=== PATIENT | male | born 2000 ===

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

== ENCOUNTER 2019-06-27 20:24 | Emergency (ER) | payer BC ==
[~2019-06-27] VITALS: Ht 175.3 cm; Wt 81.7 kg
== END 2019-06-27 23:11 | disposition home or self-care (01) ==
LOC: ER 20:24
DX: S01.112A Laceration without foreign body of left eyelid and periocular area, initial encounter (principal); Z88.0 Allergy status to penicillin; Z88.8 Allergy status to other drugs, medicaments and biological substances; W22.8XXA Striking against or struck by other objects, initial encounter
CPT/HCPCS: 70140; 99283-25

== ENCOUNTER 2020-04-12 20:52 | Emergency (ER) | payer OTHER ==
[~2020-04-12] VITALS: Ht 157.5 cm; Wt 69.0 kg
[2020-04-12] MEDS ORDERED: Cleocin HCl300 MG PO (21:59)
== END 2020-04-12 22:40 | disposition home or self-care (01) ==
LOC: ER 20:52
DX: K04.7 Periapical abscess without sinus (principal); Z88.0 Allergy status to penicillin; Z88.8 Allergy status to other drugs, medicaments and biological substances
CPT/HCPCS: 64450; 99282-25

== ENCOUNTER 2020-10-04 22:53 | Emergency (ER) | payer OTHER ==
[~2020-10-04] VITALS: Ht 175.3 cm; Wt 84.8 kg
[~2020-10-04 22:53] MED LIST changes: +Cleocin HCl300 MG PO
[2020-10-05] MEDS ORDERED: NAPR500 PO (00:18)
[2020-10-05] MEDS ORDERED: HYDR1TAB94 PO (00:18)
== END 2020-10-05 00:44 | disposition home or self-care (01) ==
LOC: ER 22:53
DX: S60.511A Abrasion of right hand, initial encounter (principal); S60.811A Abrasion of right wrist, initial encounter; Z88.0 Allergy status to penicillin; Z88.8 Allergy status to other drugs, medicaments and biological substances; W23.0XXA Caught, crushed, jammed, or pinched between moving objects, initial encounter
CPT/HCPCS: 73110; 99283-25; A9270; A9270-GY; L3917

== ENCOUNTER 2020-12-01 09:10 | Emergency (ER) | payer OTHER ==
[~2020-12-01] VITALS: Ht 180.3 cm; Wt 77.1 kg
[~2020-12-01 09:10] MED LIST changes: +HYDR1TAB94 PO; +NAPR500 PO
[2020-12-01] MEDS ORDERED: HYDR1TAB94 PO (09:48)
[2020-12-01] MEDS ORDERED: IBU800 MG PO (09:48)
== END 2020-12-01 09:56 | disposition home or self-care (01) ==
LOC: ER 09:10
DX: K02.9 Dental caries, unspecified (principal); Z88.0 Allergy status to penicillin; Z88.8 Allergy status to other drugs, medicaments and biological substances
CPT/HCPCS: 64450; 99282-25

== ENCOUNTER 2022-07-29 02:40 | Emergency (ER) | payer OTHER ==
[~2022-07-29] VITALS: Ht 182.9 cm; Wt 63.5 kg
[~2022-07-29 02:40] MED LIST changes: +IBU800 MG PO; +K-Dur20 MEQ PO
[2022-07-29 04:30] LABS: BASOPHILS ABSOLUTE AUTO 0.05 K/mm3 (0.00-0.23); BASOPHILS PERCENT AUTO 1 % (0-2); EOSINOPHILS ABSOLUTE AUTO 0.25 K/mm3 (0.00-0.68); EOSINOPHILS PERCENT AUTO 3 % (0-6); Hematocrit 44.5 % (37.0-53.0); Hemoglobin 15.1 g/dL (13.5-17.5); IMMATURE GRAN ABSOLUTE AUTO 0.07 K/mm3 (0.00-0.10); IMMATURE GRAN PERCENT AUTO 1 % (0-1); LYMPHOCYTES ABSOLUTE AUTO 2.16 K/mm3 (0.84-5.20); LYMPHOCYTES PERCENT AUTO 21 % (21-46); MONOCYTES ABSOLUTE AUTO 0.59 K/mm3 (0.16-1.47); MONOCYTES PERCENT AUTO 6 % (4-13); Mean Corpuscular HGB 29.4 pg (26.0-34.0); Mean Corpuscular HGB Conc 33.9 g/dL (31.5-36.5); Mean Corpuscular Volume 87 fL (80-100); Mean Platelet Volume 10.2 fL (9.1-12.4); NEUTROPHILS ABSOLUTE AUTO 7.04 K/mm3 (1.96-9.15); NEUTROPHILS PERCENT AUTO 69 % (41-73); Platelet Count 284 K/mm3 (150-400); RDW Coefficient Variation 12.1 % (11.7-14.2); RDW Standard Deviation 38.6 fL (35.1-46.3); Red Blood Cell Count 5.14 M/mm3 (4.30-5.90); White Blood Cell Count 10.16 K/mm3 (4.00-11.30)
[2022-07-29 04:55] LABS: Albumin, Blood 4.1 g/dL (3.4-5.0); Albumin/Globulin Ratio 0.9 (0.8-1.8); Bilirubin, Total 0.4 mg/dL (0.1-1.0); Bun/Creatinine Ratio 17.4 (12.0-20.0); Calcium, Blood 10.1 mg/dL (8.5-10.1); Creatinine, Blood 0.98 mg/dL (0.60-1.20); Globulin, Blood 4.6 g/dL (2.2-4.0); Magnesium, Blood 2.4 mg/dL (1.6-2.4); Potassium, Blood 3.9 mmol/L (3.5-5.5); Total Protein, Blood 8.7 g/dL (6.4-8.2)
[2022-07-29 05:43] LABS: Influenza A, PCR NEGATIVE (NEGATIVE); Influenza B, PCR NEGATIVE (NEGATIVE); Resp Syncytial Virus, PCR NEGATIVE (NEGATIVE); SARS-Cov-2 (COVID-19) PCR, MMC NEGATIVE (NEGATIVE)
[2022-07-29] MEDS ORDERED: PROC5 PO (06:15)
== END 2022-07-29 06:30 | disposition home or self-care (01) ==
LOC: ER 02:40
PROVIDERS: Student in an Organized Health Care Education/Training Program
DX: R11.2 Nausea with vomiting, unspecified (principal); R53.1 Weakness; B97.89 Other viral agents as the cause of diseases classified elsewhere; Z88.0 Allergy status to penicillin; Z88.8 Allergy status to other drugs, medicaments and biological substances; Z20.822 Contact with and (suspected) exposure to COVID-19
CPT/HCPCS: 0241U; 36415; 80053; 83690; 83735; 85025; 96374; 96375; 99283-25; J1790; J1885; J7030